=== PATIENT | male | born 1975 | race Caucasian/White ===

== ENCOUNTER 2021-01-11 20:19 | Emergency (ER) | payer MEDICAID, SELFPAY ==
[2021-01-11 20:20] VITALS: BP 162/103; PULSE 89; RESP 16; TEMP 37.2; O2SAT 98; BMI 25.3
--- NOTE | 2021-01-11 20:20 | ED.RN ---
CALLED FOR EKG PER RN REQUEST, NO OLD EKGS IN MUSE
[2021-01-11 20:31] VITALS: O2SAT 98
--- NOTE | 2021-01-11 20:31 | EKG12_ITS ---
Test Reason : CP Blood Pressure : / mmHG Vent. Rate : 089 BPM Atrial Rate : 089 BPM P-R Int : 130 ms QRS Dur : 096 ms QT Int : 362 ms P-R-T Axes : 073 056 044 degrees QTc Int : 440 ms Normal sinus rhythm Normal ECG Confirmed by CATIA CHENG, NASIR ([id number]), photography editor CRISS NEGRO ([id number]) on 01/13/2021 1:16:08 PM Referred By: BHARTI Confirmed By:NASIR BARDALES MD
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
[2021-01-11 20:40] LABS: Absolute Lymphocyte Count 4.84 X10^3/uL (0.83-4.51); Absolute Neutrophil Count 5.9 X10^3/uL (2.0-7.7); Basophil# 0.15 X10^3/uL; Basophil% 1.2 % (0-1); Eosinophils% 6.3 % (0-5); Hematocrit 49.7 % (40-54); Hemoglobin 16.4 g/dL (13.0-16.5); Lymphocyte # 4.84 X10^3/ul (0.83-4.51); Lymphocyte % 37.8 % (19-41); Mean Corpuscular Hgb 29.4 pg (27.0-32.0); Mean Corpuscular Volume 89.1 fL (80-94); Mean Platelet Vol. 9.1 fl (6.2-12.0); Monocyte# 1.04 X10^3/uL; Monocyte% 8.1 % (0-10); NRBC Flagged by Analyzer 0 % (0-5); Neutrophil # 5.93 X10^3/uL (2.7-7.7); Neutrophil % 46.4 % (47-70); Platelet Count 365 K/mm3 (150-450); RBC Distribution Width CV 14.1 % (11.6-14.6); RBC Distribution Width SD 45.7 fl (35.1-43.9); Red Blood Count 5.58 M/mm3 (4.6-6.2); White Blood Count 12.8 K/mm3 (4.4-11.0)
[2021-01-11] MEDS: 0.9% Normal Saline 1,000 ML 150 ML IV (20:41)
[2021-01-11] MEDS: fentaNYL 100 MCG/2 ML Ampul 25 MCG IV (20:42)
[2021-01-11] MEDS: Aspirin 81 MG TAB.CHEW 324 MG PO (20:46)
--- NOTE | 2021-01-11 20:48 | RAD_ITS ---
STUDY: X-RAY CHEST REASON FOR EXAM: Male, 45 years old. Chest pain TECHNIQUE: 2 frontal views of the chest COMPARISON: None. FINDINGS: Cardiac silhouette unremarkable. Pulmonary vascularity unremarkable. Aorta unremarkable. No focal airspace opacities. No pleural effusions. Upper abdomen unremarkable. Osseous structures intact. Old left clavicle fracture. No pneumothorax. RAD/Chest 1 View (Portable) IMPRESSION: No acute cardiopulmonary process identified. Electronically Signed: Uri Willson MD at 21:23 EDT Tel , Service support ,
[2021-01-11 20:53] VITALS: BP 145/102; PULSE 90; RESP 16; O2SAT 98
[2021-01-11 20:53] LABS: D-Dimer Quantitative (DVT/PE) 0.35 FEU/ug/m (0.27-0.49)
[2021-01-11 21:13] LABS: Anion Gap 5 (5-15); BUN 11 mg/dL (7-18); BUN/Creat Ratio 10.8 RATIO (10-20); Calcium,Total 8.7 mg/dL (8.5-10.1); Chloride 102 mmol/L (98-107); Creatinine, Serum 1.02 mg/dL (0.70-1.30); EST Glomerular Filtration Rate 83 mL/min (>60); Est Glom Filt Rate - Afr Amer 101 mL/min (>60); Estimated Creatinine Clearance 89.53 ml/min; Glucose 102 mg/dL (74-106); Potassium 3.6 mmol/L (3.5-5.1); Sodium Level 138 mmol/L (136-145)
[2021-01-11 21:19] VITALS: BP 147/102; PULSE 87; RESP 19; O2SAT 97
[2021-01-11 21:41] VITALS: BP 147/102; PULSE 88; RESP 16; TEMP 36.9
[2021-01-11 22:11] VITALS: BP 146/96; PULSE 89; RESP 15; O2SAT 98
== END 2021-01-11 22:16 | disposition home or self-care (01) ==
PROVIDERS: Emergency Provider Emergency Medicine; PCP Family Medicine Geriatric Medicine
DX: R07.9 Chest pain, unspecified (principal); I10 Essential (primary) hypertension; F17.200 Nicotine dependence, unspecified, uncomplicated
CPT/HCPCS: 71045; 80048; 84484; 85025; 85379; 93005; 96361; 96374; 99285; J7030; A4216

== ENCOUNTER 2022-04-28 11:09 | Emergency (ER) | payer MEDICAID, SELFPAY ==
[2022-04-28 11:10] VITALS: BP 125/84; PULSE 112; RESP 18; TEMP 36.4; O2SAT 98; BMI 24.3
--- NOTE | 2022-04-28 11:23 | EX.ED.DYSGE1 ---
HPI History of Present Illness Chief Complaint: Other, Pain/Inj Informant: patient Narrative Narrative: 46-year-old male states that this morning he noticed a lump on his neck. He states its not tender but it is nerve-racking for him. He states his primary care physician is in [facility] but he lives in [facility] and he has no way to get to his primary care doctor. When asked how he came to [facility] he states his family brought him. He notes he is never noticed this lump before. He notes no redness of it. He states it moves in the skin. [facility] Medical History Hypertension Home Medications cephalexin 500 mg capsule 500 mg PO Q6 #28 CAPSULES 04/28/22 [Rx Last Taken Unknown] Allergy/AdvReac Type Severity Reaction Status Date / Time No Known Allergies Allergy Verified 04/28/22 11:12 Social History (Updated 04/28/22 @ 11:[address] Tanvir Cantu DO) Smoking Status: Current every day smoker tobacco type: cigarettes substance use type: does not use ROS ROS ED Constitutional Constitutional ED: Denies chills or weight loss Eyes Eyes: Denies change in vision or diplopia ENT ENT ED: Denies ear pain, rhinorrhea or sore throat Cardiovascular Cardiovascular: Denies chest pain, orthopnea, palpitations or racing heartbeat Respiratory/Chest Respiratory/Chest: Denies cough, dyspnea or orthopnea Gastrointestinal Gastrointestinal: Denies abdominal pain, diarrhea, nausea or vomiting Genitourinary Genitourinary ED: Denies dysuria, hematuria or urinary frequency Musculoskeletal Musculoskeletal: Denies arthralgias or myalgias Integumentary Reports other Details: See history of present illness ; Denies abscess or rash Neurologic Neurologic: Denies headache(s) or weakness Psychiatric Psychiatric: Denies anxiety, depression, suicidal ideation or suicidal thoughts Endocrine Endocrinology: Denies polydipsia, polyphagia or polyuria Allergic/Immunologic Allergic/Immunologic ED: Denies mouth swelling, tongue swelling or urticaria EXAM Physical Exam Const Vital Signs: 04/28/22 11:10 Temperature 97.5 F L Temperature Source Temporal Pulse Rate 112 H Respiratory Rate 18 Blood Pressure 125/84 H Blood Pressure Mean 97 Pulse Ox 98 Oxygen Delivery Method Room Air Positive well nourished and well developed General Appearance ED: well developed HEENT Reports normocephalic, head/scalp atraumatic and moist mucous membranes HEENT Narrative: Located left posterior trapezius region is a 5 mm round movable firm mass. There is no overlying redness or tenderness to it. I do not palpate any other masses or lesions. Eyes PERRL and EOMs intact bilaterally Neck no lymphadenopathy, supple and no JVD Resp normal respiratory effort and clear to auscultation bilaterally Cardio regular rate, regular rhythm and no murmurs GI normal to inspection, nondistended, normoactive bowel sounds and non-tender Palpation: soft Back/Spine no CVA tenderness and normal ROM Extremity normal to inspection General Extremety ED: Negative for edema General Extremity: Negative for edema Neuro oriented x3 and CN's II-XII intact bilaterally Sensorium / Orientation: alert Motor Exam: strength 5/5 throughout Psych mental status grossly normal Mood & Affect: Negative for depressed or tearful Skin no rashes or lesions noted and no wounds MDM MDM MDM Narrative Medical decision making narrative: Patient was advised this most likely an epidermal cyst but does not appear infected. We also talked about the possibility of it being enlarged lymph node. I will write him a prescription for Keflex should the skin turn red or become painful. Otherwise he may visit with general surgery to discuss an excision. He states that will be hard for him to do because he lives in [place] in the doctors would be in [place]. I advised him that with proper planning his family may be able to bring him back for his appointment. Discharge Plan Triage Chief Complaint: Other, Pain/Inj ED Provider: Tanvir Cantu Dx/Rx/DC Orders Clinical Impression: Sebaceous cyst Instructions: ED Epidermoid Cyst, No Infection Prescriptions: New cephalexin [cephalexin] 500 mg capsule 500 mg PO Q6 Qty: 28 0RF Primary Care Provider: NOT,DEFINED Referrals: Corwin Piña MD [Med Staff - Active Staff] - As Needed NOT,DEFINED [Primary Care Provider] - Disposition Disposition: Home, Self Care
== END 2022-04-28 11:44 | disposition home or self-care (01) ==
LOC: ED 11:35
PROVIDERS: Emergency Provider Emergency Medicine; PCP Student in an Organized Health Care Education/Training Program; Visit Provider Emergency Medicine
DX: L72.3 Sebaceous cyst (principal); F17.210 Nicotine dependence, cigarettes, uncomplicated; I10 Essential (primary) hypertension
CPT/HCPCS: 99282

== ENCOUNTER 2025-02-19 13:53 | Emergency (ER) | payer MEDICAID, SELFPAY ==
[2025-02-19] VITALS (7 sets, daily range): BP systolic 109–171; BP diastolic 70–96; PULSE 61–98; RESP 16–18; TEMP 36.2–36.9; O2SAT 98–100; BMI 14.5
--- NOTE | 2025-02-19 15:33 | ED.VIS.GI ---
HPI HPI - GI History of Present Illness Chief Complaint: Foreign Body Detail of Chief Complaint: Dysphagia and weight loss Informant: patient Narrative Narrative: Patient presents to the emergency department complaint of dysphagia and weight loss that began about a year ago. Patient states that over a year ago he was eating a big piece of steak and he felt like he got stuck but did not see anybody for this and felt like he eventually would pass. Since that time he is had a difficult time swallowing solids and more recently have a hard time swallowing liquids. He is lost about 65 pounds in the last year. He denies fever chills or sweats. He is a smoker. He does not see a primary care physician although recently got a care source card with a listed primary care physician. He has had intermittent nausea and vomiting [facility] Medical History Hypertension Home Medications ?Medication ?Instructions ?Recorded ?Last Taken ?Type cephalexin 500 mg capsule 500 mg PO Q6 #28 CAPSULES 04/28/22 Unknown Rx Allergy/AdvReac Type Severity Reaction Status Date / Time No Known Allergies Allergy Verified 02/19/25 13:54 Social History (Updated 02/19/25 @ 15:54 by Karen Washington) housing: house Smoking Status: Current every day smoker tobacco type: cigarettes substance use type: does not use ROS ROS ED Review of Systems ROS Unobtainable: other Constitutional Constitutional ED: Reports lethargy; Denies chills, fever(s), sweats or weight loss Eyes Eyes: Denies blurry vision, change in vision or diplopia ENT ENT ED: Denies rhinorrhea or sore throat Cardiovascular Cardiovascular: Denies chest pain, orthopnea or racing heartbeat Respiratory/Chest Respiratory/Chest: Denies cough, dyspnea, dyspnea on exertion, orthopnea or sputum Gastrointestinal Gastrointestinal: Reports abdominal pain, nausea, vomiting and other Details: Dysphagia ; Denies diarrhea Genitourinary Genitourinary ED: Denies dysuria, hematuria or urinary frequency Musculoskeletal Musculoskeletal: Denies arthralgias, back pain, myalgias or neck pain Integumentary Denies abscess, Abrasions or rash Neurologic Neurologic: Denies headache(s) or weakness Psychiatric Psychiatric: Denies anxiety, depression or suicidal thoughts Endocrine Endocrinology: Denies polydipsia, polyphagia or polyuria Hematologic/Lymphatic Hematologic/Lymphatic: Denies easy bleeding, easy bruising or lymphadenopathy Allergic/Immunologic Allergic/Immunologic ED: Denies mouth swelling, tongue swelling or urticaria EXAM Physical Exam Const Vital Signs: 02/19/25 13:54 02/19/25 15:53 02/19/25 15:53 Temperature 97.1 F L Temperature Source Temporal Pulse Rate 98 90 Respiratory Rate 16 16 Respiratory Effort Normal Non-Labored Blood Pressure 129/88 H 109/70 Blood Pressure Mean 101 83 Pulse Ox 100 98 Oxygen Delivery Method Room Air 02/19/25 17:00 02/19/25 17:07 Temperature 98 F Temperature Source Pulse Rate 81 81 Respiratory Rate 16 16 Respiratory Effort Blood Pressure 171/96 H 110/70 Blood Pressure Mean 121 83 Pulse Ox 98 98 Oxygen Delivery Method Positive well developed and cachectic; Negative for well nourished General Appearance ED: well developed, cachectic and NAD Nutritional Appearance: cachectic HEENT Reports TM's clear and moist mucous membranes normocephalic and atraumatic; Negative for trauma or tenderness Tympanic Membrane ED: Yes TM's clear Eyes PERRL and EOMs intact bilaterally General Eye ED: Negative for pale conjunctiva or scleral icterus Neck no lymphadenopathy, supple and no JVD General: Negative for tenderness Chest Wall inspection of chest normal and palpation of chest normal Chest: Negative for tenderness Resp normal respiratory effort and clear to auscultation bilaterally Effort and Inspection: Negative for respiratory distress or pain with movement Auscultation: Negative for rhonchi, wheezes or diminished lung sounds Cardio regular rate, regular rhythm, S1 normal heart sound, S2 normal heart sound and no murmurs Peripheral Pulses: pulses 2+ throughout GI normal to inspection, nondistended, normoactive bowel sounds, soft to palpation, non-distended and no masses GI Narrative: Mild diffuse tenderness. There is no rebound, rigidity, or peritoneal signs. No mass palpated Back/Spine no CVA tenderness and no thoracic nor lumbar tenderness Extremity normal to inspection General Extremety ED: Negative for edema General Extremity: Negative for edema Neuro oriented x3, CN's II-XII intact bilaterally, no sensory deficits noted and gait normal Sensorium / Orientation: awake, alert, oriented to person, oriented to place and oriented to time Motor Exam: strength 5/5 throughout and strength abnormal Psych mental status grossly normal Skin no rashes or lesions noted and no wounds MDM MDM MDM Narrative Medical decision making narrative: Patient presents with dysphagia and weight loss. Patient cachectic. IV line established. CBC with differential count of 13.2 with hemoglobin 16 and platelet count of 537. Chemistries unremarkable. BUN 31 and creatinine 1.05. LFTs were normal. Lipase normal at 15. CT scan of the chest abdomen pelvis obtained with IV contrast showed patulous esophagus with distal asymmetric irregular wall thickening highly suspicious for esophageal malignancy. Patient had mediastinal lymphadenopathy suspicious for metastatic disease. Had pulmonary emphysema. Patient with moderate bilateral hydro ureteral nephrosis without obstructing stones. Patient case discussed with Dr. Mora who is comfortable with patient remaining here for definitive diagnosis and esophageal stenting and possible evaluation by oncology Lab Data Attestation: I reviewed the patient's lab results. Labs: Laboratory Results - last 24 hr 02/19/25 15:40 WBC 13.2 H RBC 5.37 Hgb 16.0 Hct 48.9 MCV 91.1 MCH 29.8 MCHC 32.7 RDW Std Deviation 49.4 H RDW Coeff of Yomaira 14.9 H Plt Count 537 H MPV 9.4 Immature Gran % (Auto) 0.500 Neut % (Auto) 80.3 H Lymph % (Auto) 8.5 L Alfalfa % (Auto) 8.5 Eos % (Auto) 1.6 Baso % (Auto) 0.6 Absolute Neuts (auto) 10.6 H Absolute Lymphs (auto) 1.12 Nucleated RBC % 0 Sodium 142 Potassium 4.1 Chloride 99 Carbon Dioxide 26.3 Anion Gap 16 H BUN 31 H Creatinine 1.05 Estim Creat Clear Calc 52.60 Est GFR (MDRD) Non-Af 86 BUN/Creatinine Ratio 29.2 H Glucose 113 H Calcium 10.0 Total Bilirubin 0.83 AST 18 ALT 10 Alkaline Phosphatase 99 Total Protein 9.2 H Albumin 4.4 Globulin 4.7 H Albumin/Globulin Ratio 0.9 Lipase 15 Radiography Diagnostic Testing: Clinical Impression(s) from Imaging Studies Chest/Abdomen/Pelvis CT 02/19/25 16:22 IMPRESSION: Patulous esophagus with distal asymmetric irregular wall thickening highly suspicious for esophageal malignancy. Mediastinal lymphadenopathy suspicious for metastatic disease. Pulmonary emphysema. Moderate bilateral hydroureteronephrosis without visualized obstructing calculi. Reading Location: [id number] Discharge Plan Dx/Rx/DC Orders Clinical Impression: Dysphagia, Esophageal cancer, Malnutrition, Emphysema lung Disposition Disposition: Acute Care Hospital [facility]
[2025-02-19] MEDS: 0.9% Normal Saline (1000mL) 1,000 ML 150 ML IV (15:39)
[2025-02-19 15:51] LABS: Absolute Lymphocyte Count 1.12 X10^3/uL (0.83-4.51); Absolute Neutrophil Count 10.6 X10^3/uL (2.0-7.7); Basophil# 0.08 X10^3/uL; Basophil% 0.6 % (0-1); Eosinophil# 0.21 X10^3/uL; Eosinophils% 1.6 % (0-5); Hematocrit 48.9 % (40-54); Lymphocyte # 1.12 X10^3/ul (0.83-4.51); Lymphocyte % 8.5 % (19-41); Mean Corp Hgb Conc 32.7 g/dL (32-36); Mean Corpuscular Hgb 29.8 pg (27.0-32.0); Mean Corpuscular Volume 91.1 fL (80-94); Mean Platelet Vol. 9.4 fl (6.2-12.0); Monocyte# 1.12 X10^3/uL; Monocyte% 8.5 % (0-10); NRBC Flagged by Analyzer 0 % (0-5); Neutrophil # 10.59 X10^3/uL (2.7-7.7); Neutrophil % 80.3 % (47-70); Platelet Count 537 K/mm3 (150-450); RBC Distribution Width CV 14.9 % (11.6-14.6); RBC Distribution Width SD 49.4 fl (35.1-43.9); Red Blood Count 5.37 M/mm3 (4.6-6.2); White Blood Count 13.2 K/mm3 (4.4-11.0)
[2025-02-19 16:17] LABS: ALB/GLOB Ratio 0.9 RATIO (0.9-2.4); AST(SGOT) 18 U/L (<=37); Alanine Aminotransfer ALT/SGPT 10 U/L (<=46); Albumin, Serum 4.4 g/dL (3.5-5.0); Alkaline Phosphatase 99 U/L (40-129); Anion Gap 16 (5-15); BUN 31 mg/dL (4-19); BUN/Creat Ratio 29.2 RATIO (10-20); Carbon Dioxide 26.3 mmol/L (21.0-32.0); Chloride 99 mmol/L (98-108); Creatinine, Serum 1.05 mg/dL (0.70-1.20); EST Glomerular Filtration Rate 86 (>60); Globulin 4.7 g/dL (2.2-4.2); Glucose 113 mg/dL (70-99); Lipase 15 U/L (13-75); Potassium 4.1 mmol/L (3.3-5.1); Protein, Total 9.2 g/dL (5.9-8.4); Sodium Level 142 mmol/L (133-145); Total Bilirubin 0.83 mg/dL (0.00-1.30)
--- NOTE | 2025-02-19 16:22 | CT_ITS ---
PROCEDURE: CT CHEST, ABD, PEL W/CONTRAST 02/19/2025 REASON FOR EXAM: DYSPHAGIA, WEIGHT LOSS, SMOKER TECHNIQUE: Chest, abdomen and pelvis CT with intravenous contrast. Coronal and Sagittal reconstruction series were provided. One or more dose reduction techniques were used (e.g., Automated exposure control, adjustment of the mA and/or kV according to patient size, use of iterative reconstruction technique. PATIENT PREPARATION: Per protocol CONTRAST: Isovue 370 VOLUME: 100mL. RADIATION DOSE SUMMARY: CTDlvol: 19.00+ 4.83+ 4.84 mGy DLP: 455.74 mGycm COMPARISON: None. FINDINGS: CT CHEST: The peripheral soft tissues are unremarkable. The thyroid is unremarkable. Patulous esophagus with distal esophageal irregular focal wall thickening highly suspicious for neoplastic process. The thoracic aorta is normal in caliber. A subcarinal lymph node measures 12 mm in short axis diameter. Adjacent to the thickened distal esophagus there are enlarged lymph nodes. To the right of the esophagus there is soft tissue density measuring 21 mm which may represent a single enlarged lymph node or conglomerate of lymph nodes. Moderate centrilobular and paraseptal emphysema. CT ABDOMEN/PELVIS: The peripheral soft tissues are unremarkable. Degenerative changes of the spine. Grade 1 retrolisthesis of L5 on S1. Moderate atherosclerosis. Normal caliber abdominal aorta. The liver is unremarkable. The gallbladder, pancreas, spleen, and adrenals are unremarkable. Symmetric enhancement of the bilateral kidneys. Moderate bilateral hydroureteronephrosis without visualized obstructing calculi. The urinary bladder and reproductive organs are unremarkable. Normal caliber large and small bowel. CT/CT Chest, Abd, Pel w/Contrast IMPRESSION: Patulous esophagus with distal asymmetric irregular wall thickening highly susp icious for esophageal malignancy. Mediastinal lymphadenopathy suspicious for metastatic disease. Pulmonary emphysema. Moderate bilateral hydroureteronephrosis without visualized obstructing calculi . Reading Location: [place] [id number]
--- NOTE | 2025-02-19 18:33 | CM.ED ---
Social Work SW was made aware of patients diagnosis and need for transfer. SW met with patient, introduced self and explained role with hospital. Patient answered first initial questions from licensed clinical social worker than declined further conversation, stating I really do not need this right now SW let patient know if he changed his mind and wanted to talk, to let his nurse know. Personal space given. Malika Andres, MYSTERY SHOPPER, SECURITY STRATEGIST
--- NOTE | 2025-02-19 19:50 | PCA ---
PT WAS ACCEPTED AT [address] [phone] [facility] WAS CALLED FOR TRANSPORT. ETA GIVEN 4-5 HRS. PHYSICIANS WAS ASKED TO TRY AND OUTSOURCE
[2025-02-19] MEDS: Ondansetron 4 MG/2 ML Vial IV (21:17)
== END 2025-02-19 23:47 | disposition home or self-care (01) ==
PROVIDERS: Emergency Provider Emergency Medicine; PCP Student in an Organized Health Care Education/Training Program; Visit Provider Emergency Medicine
DX: R13.10 Dysphagia, unspecified (principal); C15.9 Malignant neoplasm of esophagus, unspecified; J43.9 Emphysema, unspecified; R11.2 Nausea with vomiting, unspecified; R59.0 Localized enlarged lymph nodes; F17.210 Nicotine dependence, cigarettes, uncomplicated; E46 Unspecified protein-calorie malnutrition; I10 Essential (primary) hypertension; N13.30 Unspecified hydronephrosis
CPT/HCPCS: 71260; 74177; 80053; 83690; 85025; 96361; 96374; 99285; Q9967; A4216; J2405